=== PATIENT | male | born 1960 | race Hispanic/Latino ===

== ENCOUNTER 2025-02-16 00:34 | Emergency (ER) | payer BC ==
[~2025-02-16] VITALS: Ht 154.9 cm; Wt 67.1 kg
--- NOTE | 2025-02-16 00:41 | NUR ---
UA CUP PROVIDED
--- NOTE | 2025-02-16 00:43 | NUR ---
COVID, FLU AND STREP SWABS COLLECTED AND SENT
[2025-02-16 01:36] LABS: RAPID GROUP A STREP negative (NEGATIVE)
[2025-02-16 01:38] LABS: SARS-CoV-2, RNA, NAAT NEGATIVE SARS CoV-2 (NEGATIVE)
--- NOTE | 2025-02-16 01:42 | ERN ---
ED Note History of Present Illness Stated Complaint: HTN Chief Complaint: Multiple Complaints Time Seen by MD: 00:38 Time Seen by Midlevel: 00:38 Dictation: The patient is a 64-year-old male with a history of hypertension who presents to the emergency department with complaints of elevated blood pressure reading at home. Patient reports blood pressure was 195/89 and he took his lisinopril that was scheduled. Patient reports he checked his blood pressure because he has been having sore throat and nasal congestion and occasional cough. Reports he went to go see his PCP and swabbed him which were negative. Patient otherwise denies any chest pain or shortness of breath. Denies any dizziness or any other associated symptoms. Allergies: Coded Allergies: No Known Allergies (Unverified Allergy, Unknown, 02/16/25) Past Medical History Past Medical History: Hypertension, Other Additional Past Medical Hx: INSOMNIA Surgical History: None RN Note Reviewed/Agreed w/PFSH: Yes Review of System Dictation Constitutional: Negative for fever,chills, and weight loss Eyes: Negative for injury, pain,redness, and discharge ENT: Negative for injury,pain or swelling positive for sore throat Cardiovascular: Negative for chest pain, palpitations, and edema Respiratory: Negative for shortness of breath, cough, and wheezing, Abdomen/GI: Negative for abdominal pain, nausea, vomiting, diarrhea, and constipation Back: Negative for injury and pain : Negative for injury, bleeding and discharge MS/Extremity: Negative for injury and deformity Skin: Negative for rash, and discoloration Neuro: Negative for headache, weakness, numbness, tingling, and seizure Psych: Negative for suicide ideation, homicidal ideation, and hallucinations Initial Vital Sign VS Vital Signs Date Time Temp Pulse Resp B/P (MAP) Pulse Ox O2 Delivery O2 Flow Rate FiO2 02/16/25 00:37 98.1 68 20 159/86 99 Room Air Physical Exam Dictation Vital Signs reviewed General Appearance: Alert, oriented x 3, no acute distress, well developed, nourished. Head and Face: non-traumatic. Eyes: PERRL, pink conjunctivas, eyelid no trauma, anterior chamber with arcus senilis. Ears: Pinnas intact and no signs of trauma or erythema ear canals clear and no discharge TM no erythema Nose: No discharge, no bleeding. Oropharynx: Mouth normal, tongue pink. pharynx clear,no erythema, tonsils no exudates, no abscesses noted, mucous membrane moist Neck: Supple, non-tender, no thyromegaly, no masses, no JVD, no bruits Breast:Deferred Chest:No tenderness, no crepitus, no paradoxical movement, no retractions Lungs:Clear, well-ventilated, symmetric, no rales, no wheezing, no rhonchi, no stridor, good breath sounds bilaterally Heart: Regular rate, regular rhythm, no murmur, no gallops Vascular: no peripheral edema, Abdomen: Soft, positive bowel sounds, nondistended, no guarding, nontender, no rebound, no masses no hepatomegaly, no splenomegaly, no Shin's sign, no hernias. Rectal: Deferred Genital: Deferred Neurological: Normal speech, motor function intact, sensory function intact Musculoskeletal: Neck nontender, full range of motion, back nontender, full range of motion, Extremities: nontender, full range of motion Skin: Color pink, dry, no turgor, no rash, no lacerations, no abrasions, no contusions. Lymphatic: Deferred Results (Laboratory/Radiology) Laboratory/Radiology Laboratory Tests Test 02/16/25 00:47 Influenza Type A Antigen Negative For Type A Influenza Type B Antigen Negative For Type B SARS-CoV-2, RNA, NAAT NEGATIVE SARS CoV-2 Group A Streptococcus Rapid negative (NEGATIVE) Labs Reviewed?: Yes ED Course ED Course Orders Procedure Category Date Status Time Covid Rna Naat LAB 02/16/25 Complete 00:42 Influenza Type A & B, LAB 02/16/25 Complete Rapid 00:42 Rapid (Group A Strep) LAB 02/16/25 Complete 00:42 Vital Signs Date Time Temp Pulse Resp B/P (MAP) Pulse Ox O2 Delivery O2 Flow Rate FiO2 02/16/25 00:37 98.1 68 20 159/86 99 Room Air Medical Decision Making MDM The patient is a 64-year-old male with a history of hypertension who presents to the emergency department with complaints of elevated blood pressure reading at home. Patient reports blood pressure was 195/89 and he took his lisinopril that was scheduled. Patient reports he checked his blood pressure because he has been having sore throat and nasal congestion and occasional cough. Reports he went to go see his PCP and swabbed him which were negative. Patient otherwise denies any chest pain or shortness of breath. Denies any dizziness or any other associated symptoms. Serology was negative. Patient reports he feels fine and does not want any lab done or chest x-ray. Patient with no chest pain or shortness of breath. Reports he just wants to wait on his swab results. Blood pressure has improved. Patient in no acute distress, nontoxic appearance. Stable vital signs. Patient will be discharged to follow up with PCP. Differential diagnosis: Strep throat, URI, high blood pressure reading Need for hospitalization: Patient does not meet criteria for hospitalization. There are no social concerns with this patient. DX & DISP Disposition: Discharge Departure Impression: Primary Impression: Elevated blood pressure reading Additional Impression: URI (upper respiratory infection) Condition: Stable Additional Instructions: Please follow up with the primary doctor in 1-2 days. Continue taking your medications as prescribed by your doctor. If anything worsens please return to ER. FOLLOW-UP WITH PRIMARY CARE PROVIDER IN 1 TO 2 DAYS. TAKE MEDICATIONS DIRECTED HERE IN THE EMERGENCY ROOM. OKAY TO CONTINUE HOME MEDICATIONS UNLESS OTHERWISE DISCUSSED DURING YOUR VISIT IN THE EMERGENCY ROOM TODAY. RETURN TO YOUR NEAREST EMERGENCY ROOM IF SYMPTOMS WORSEN OR IF THERE IS NO IMPROVEMENT. CALL 911 IF YOU NEED IMMEDIATE ASSISTANCE. TAKE TYLENOL [id number] NEEDED AND IF NO CONTRAINDICATIONS ARE PRESENT. INCREASE ORAL HYDRATION. A WOUND CULTURE OR URINE CULTURE WAS ORDERED HERE IN THE EMERGENCY ROOM DEPARTMENT PLEASE FOLLOW-UP WITH PRIMARY CARE PROVIDER AND ADVISE THEM TO GET REPEAT PORTS FROM OUR FACILITY. IF YOU HAD ANY RAMESH WRAP/SPLINTS THAT WERE APPLIED HERE, PLEASE DO NOT REMOVE THEM UNTIL YOU SEE YOUR PRIMARY CARE OR SPECIALTY. Referrals: NONE (PCP) Time of Disposition: 02:00 I have reviewed the case, and I agree with, Diagnosis and Plan BOB ROCHE Feb 16, 2025 01:42
[2025-02-16 01:46] LABS: INFLUENZA TYPE A Negative For Type A (NEGATIVE); INFLUENZA TYPE B Negative For Type B (NEGATIVE)
[2025-02-16 03:00] VITALS: BP 143/82; PULSE 65; RESP 16; TEMP 98.3; O2SAT 99
== END 2025-02-16 03:04 | disposition home or self-care (01) ==
LOC: EDH 00:34
DX: J06.9 Acute upper respiratory infection, unspecified (principal); I10 Essential (primary) hypertension; Z20.822 Contact with and (suspected) exposure to COVID-19
CPT/HCPCS: 87635; 87804; 87880; 99283